=== PATIENT | male | born 1970 | race Caucasian/White ===

== ENCOUNTER 2017-06-08 21:28 | Emergency (ER) | payer OTHER ==
[~2017-06-08 21:28] MED LIST: AUGMENTIN875 MG PO
[2017-06-08 21:48] LABS: BASOPHIL (%) 0.3 % (0-1); EOSINOPHIL (%) 2.7 % (0-5); EOSINOPHIL COUNT 0.2 K/uL (0-0.3); HEMATOCRIT 39.6 % (38.0-50.0); HEMOGLOBIN 13.9 G/DL (12.5-16.6); IMMATURE GRANULOCYTE (%) 0.4 % (0.0-0.7); LYMPHOCYTE COUNT 2.1 K/uL (1.0-2.8); MCH 32.2 PG (29.0-34.0); MCHC 35.1 G/DL (30.0-36.0); MCV 91.7 FL (86-99); MONOCYTE (%) 7.1 % (3-12); MONOCYTE COUNT 0.5 K/uL (0-0.8); NEUTROPHIL (%) 59.5 % (45-76); NEUTROPHIL COUNT 4.3 K/uL (1.8-6.4); PLATELET COUNT 241 K/uL (156-360); RBC DIS.WIDTH-CV 11.8 % (11.8-14.6); RBC DIS.WIDTH-SD 39.6 % (39-53); RED BLOOD COUNT 4.32 M/uL (4.00-5.50); WHITE BLOOD COUNT 7.1 K/uL (4.1-10.2)
[2017-06-08 21:59] LABS: AMYLASE 58 IU/L (1-118); CHLORIDE 105 mEq/L (99-109); POTASSIUM 4.1 mEq/L (3.7-5.4); SODIUM 141 mEq/L (136-147)
[2017-06-08 22:01] LABS: GLUCOSE 86 mg/dL (70-99)
[2017-06-08 22:04] LABS: SERUM ETHYL ALCOHOL < 10 mg/dL
[2017-06-08 22:05] LABS: CREATININE 1.1 mg/dL (0.6-1.3); GFR ESTIMATE (CALCULATED) > 59 mL/min/ (58.99-99999)
[2017-06-08 22:06] LABS: UREA NITROGEN (BUN) 22 mg/dL (9-23)
[2017-06-08 22:08] LABS: LIPASE 20 U/L (1.0-51.0)
[2017-06-09] MEDS ORDERED: TRAMADOL HCL50 MG PO (02:36)
== END 2017-06-09 03:05 | disposition home or self-care (01) ==
LOC: TRA 21:28
PROVIDERS: Emergency Medicine
PROC: 3E0234Z Introduction of Serum, Toxoid and Vaccine into Muscle, Percutaneous Approach (ICD-10-PCS; principal; 2017-06-08)
DX: S50.312A Abrasion of left elbow, initial encounter (principal); S60.812A Abrasion of left wrist, initial encounter; S30.811A Abrasion of abdominal wall, initial encounter; S50.311A Abrasion of right elbow, initial encounter; S30.810A Abrasion of lower back and pelvis, initial encounter; S93.401A Sprain of unspecified ligament of right ankle, initial encounter; V20.4XXA Motorcycle driver injured in collision with pedestrian or animal in traffic accident, initial encounter; M54.2 Cervicalgia; M50.322 Other cervical disc degeneration at C5-C6 level; Z90.49 Acquired absence of other specified parts of digestive tract; Z23 Encounter for immunization
CPT/HCPCS: 70450; 71260; 72125; 72129; 72132; 73100; 73600; 74177; 80048; 81003; 82150; 83690; 85025; 86850; 86900; 86901; G0480; J3010